=== PATIENT | male | born 1965 | race African-American/Black ===

== ENCOUNTER 2019-01-02 07:28 | Emergency (ER) | payer OTHER ==
[~2019-01-02] VITALS: Ht 177.8 cm; Wt 75.8 kg
[2019-01-02] MEDS ORDERED: HYDROCHLOROTHIA25 M2 PO (07:42)
[2019-01-02 08:21] LABS: CALCIUM 8.4 mg/dL (8.5-10.1); CREATININE 1.3 mg/dL (0.6-1.3); POTASSIUM 3.9 mmol/L (3.5-5.1)
[2019-01-02 08:27] LABS: URIC ACID* 7.3 mg/dL (2.6-7.2)
[2019-01-02] MEDS ORDERED: NORCO 5-325 TA1 EAC1 PO (08:51)
[2019-01-02] MEDS ORDERED: PREDNISONE50 MG PO (08:51)
[2019-01-02] MEDS ORDERED: NAPROSYN500 M1 PO (08:51)
[2019-01-02 09:10] VITALS: BP 154/121
== END 2019-01-02 09:10 | disposition home or self-care (01) ==
LOC: M.ERS 07:28
PROVIDERS: Emergency Medicine Emergency Medical Services
DX: M10.072 Idiopathic gout, left ankle and foot (principal); I10 Essential (primary) hypertension; E78.00 Pure hypercholesterolemia, unspecified